=== PATIENT | male | born 1955 | race Caucasian/White ===

== ENCOUNTER 2022-04-23 20:53 | Inpatient (IN) | payer MEDICARE, MEDICAID ==
[~2022-04-23] VITALS: Ht 177.8 cm; Wt 68.0 kg
[2022-04-23] MEDS ORDERED: LevETIRAcetam 1,000 MG in DEXTROSE 5%-WATER 100 ML IV ONE (22:15)
[2022-04-23] MEDS ORDERED: LORazepam 2 MG/ML VIAL IM ONE (22:30)
[2022-04-23] MEDS ORDERED: DiphenhydrAMINE HCL 50 MG/ML VIAL IM ONE (23:30)
[2022-04-23] MEDS ORDERED: HALOPERIDOL LACTATE 5 MG/ML VIAL IM ONE (23:30)
[2022-04-24 00:09] LABS: BASOPHILS % (AUTO) 0.7 % (0.0-2.0); EOSINOPHILS % (AUTO) 0.4 % (1.0-6.0); HEMATOCRIT 38.8 % (41-53); HEMOGLOBIN 13.4 g/dL (13.5-17.5); LYMPHOCYTES # (AUTO) 0.6 K/uL (1.0-4.8); LYMPHOCYTES % (AUTO) 9.9 % (22.0-44.0); MEAN CORPUSCULAR HEMOGLOBIN 30.2 pg (26.0-34.0); MEAN CORPUSCULAR HGB CONC 34.5 G/dL (31.0-37.0); MEAN CORPUSCULAR VOLUME 87 fL (80-100); MONOCYTES # (AUTO) 0.5 K/uL (0.1-1.0); MONOCYTES % (AUTO) 7.8 % (2.0-9.0); NEUTROPHILS # (AUTO) 5.2 K/uL (1.8-7.7); NEUTROPHILS % (AUTO) 81.2 % (40.0-70.0); PLATELET COUNT (AUTO) 196 K/uL (150-450); RED BLOOD CELL COUNT(AUTO) 4.44 MIL/uL (4.50-5.90); RED CELL DISTRIBUTION WIDTH 15.6 % (11.5-14.5)
[2022-04-24 00:18] LABS: ANION GAP 10 mmol/L (8-16); CALCIUM, TOTAL 8.3 mg/dL (8.8-10.5); CARBON DIOXIDE 28 mmol/L (22-29); CHLORIDE 102 mmol/L (98-107); CREATININE 0.74 mg/dL (0.60-1.30); GLOMERULAR FILTR. RATE CALC > 60 mL/min (>60); GLUCOSE,RANDOM 86 mg/dL (70-110); POTASSIUM 3.7 mmol/L (3.5-5.1); SODIUM SERUM 140 mmol/L (136-145); UREA NITROGEN, BLOOD 17 mg/dL (7-18)
[2022-04-24 00:27] LABS: ALANINE AMINOTRANSFERASE 16 U/L (12-78); ALBUMIN 3.3 g/dL (3.4-5.0); ALKALINE PHOSPHATASE 60 U/L (46-116); ASPARTATE AMINOTRANSFERASE 25 U/L (15-37); BILIRUBIN,TOTAL 0.7 mg/dL (0.1-1.0); CREATINE KINASE, TOTAL ONLY 158 U/L (39-308); PHOSPHORUS 3.1 mg/dL (2.5-4.9); TOTAL PROTEIN, SERUM 6.5 g/dL (6.4-8.2)
[2022-04-24 00:31] LABS: B-TYPE NATRIURETIC PEPTIDE 18 pg/mL (0-100)
[2022-04-24 02:53] LABS: COVID AG,FIA SOURCE NASAL SWAB
[2022-04-24] MEDS ORDERED: ONDANSETRON HCL 4 MG/2 ML VIAL IVP PRN (03:00)
[2022-04-24] MEDS ORDERED: ACETAMINOPHEN 325 MG TABLET PO PRN (03:00)
[2022-04-24 05:50] VITALS: BP 99/55
[2022-04-24] MEDS ORDERED: DiphenhydrAMINE HCL 50 MG/ML VIAL IM ONE (06:45)
[2022-04-24] MEDS ORDERED: HALOPERIDOL LACTATE 5 MG/ML VIAL IM PRN (06:45)
[2022-04-24] MEDS: HEPARIN SODIUM,PORCINE 5,000 UNITS/ML VIAL SQ SCH ×2 (08:00→16:00)
[2022-04-24] MEDS: LevETIRAcetam 500 MG in DEXTROSE 5%-WATER 100 ML IV SCH ×2 (10:00→23:15)
[2022-04-24 11:14] VITALS: BP 122/85
[2022-04-24 16:50] VITALS: BP 110/65
[2022-04-25 00:12] VITALS: BP 120/67
[2022-04-25 04:48] VITALS: BP 102/61
[2022-04-25 07:15] VITALS: BP 114/73
[2022-04-25] MEDS: HEPARIN SODIUM,PORCINE 5,000 UNITS/ML VIAL SQ SCH ×3 (08:00→16:00)
[2022-04-25] MEDS: LevETIRAcetam 500 MG in DEXTROSE 5%-WATER 100 ML IV SCH (08:44)
[2022-04-25] MEDS ORDERED: FOLIC ACID 1 MG TABLET PO SCH (09:00)
[2022-04-25] MEDS ORDERED: THIAMINE 100 MG TABLET PO SCH (09:00)
[2022-04-25] MEDS ORDERED: MULTIVITAMINS WITH MINERALS, THERAPEUTIC TABLET PO SCH (09:00)
[2022-04-25 11:00] VITALS: BP 100/80
[2022-04-25] MEDS ORDERED: LevETIRAcetam 500 MG TABLET PO ONE (14:00)
[2022-04-25] MEDS ORDERED: RisperiDONE 4 MG TABLET PO ONE (14:00)
[2022-04-25] MEDS ORDERED: THIA100T80 PO (14:11)
[2022-04-25] MEDS ORDERED: MULT-1239 PO (14:11)
[2022-04-25] MEDS ORDERED: BENZ1TAB96 PO ×2 (14:11→15:33)
[2022-04-25] MEDS ORDERED: LEVE500T8 PO ×2 (14:11→14:16)
[2022-04-25] MEDS ORDERED: RISP4TAB73 PO ×2 (14:16)
[2022-04-25] MEDS ORDERED: LEVE500T20 PO (15:32)
[2022-04-25] MEDS ORDERED: MULT-1203 PO (15:33)
[2022-04-25] MEDS ORDERED: BENZTROPINE MESYLATE 1 MG TABLET PO SCH (21:00)
[2022-04-25] MEDS ORDERED: LevETIRAcetam 500 MG TABLET PO SCH (21:00)
== END 2022-04-25 17:15 | disposition home or self-care (01) | DRG 100 ==
LOC: EMS 20:54 → 5S 04-24 03:27
PROVIDERS: ADMIT Internal Medicine; ATTEND Internal Medicine
DX: G40.89 Other seizures (principal); E43 Unspecified severe protein-calorie malnutrition; G92.8 Other toxic encephalopathy; Z20.822 Contact with and (suspected) exposure to COVID-19; T50.905A Adverse effect of unspecified drugs, medicaments and biological substances, initial encounter; Z68.21 Body mass index [BMI] 21.0-21.9, adult; Y92.89 Other specified places as the place of occurrence of the external cause
CPT/HCPCS: 70450; 71045; 80053; 82550; 83735; 83880; 84100; 84484; 85025; 93005; 99285; J0712; J1200; J1630; J1644; J2060; J7060; 36415-L1; 36415-TC